=== PATIENT | female | born 1980 | race Caucasian/White ===

== ENCOUNTER 2021-02-09 17:47 | Emergency (ER) | payer MEDICAID ==
[~2021-02-09] VITALS: Ht 162.6 cm; Wt 52.2 kg
[2021-02-09 17:48] VITALS: BP 104/62
== END 2021-02-09 20:00 | disposition left against medical advice (07) ==
LOC: ER 17:47
DX: Z53.21 Procedure and treatment not carried out due to patient leaving prior to being seen by health care provider (principal)
CPT/HCPCS: 93005